=== PATIENT | female | born 1985 | race Caucasian/White ===

== ENCOUNTER 2019-05-12 22:22 | Emergency (ER) | payer OTHER ==
[~2019-05-12] VITALS: Ht 165.1 cm; Wt 61.2 kg
== END 2019-05-13 04:00 | disposition home or self-care (01) ==
LOC: ER 22:22
DX: O26.852 Spotting complicating pregnancy, second trimester (principal); Z34.02 Encounter for supervision of normal first pregnancy, second trimester

== ENCOUNTER 2019-06-16 11:50 | Outpatient (CLI) | payer OTHER | END 2019-06-16 12:55 | disposition home or self-care (01) | LOC: NST 11:50 | DX: O44.02 Complete placenta previa NOS or without hemorrhage, second trimester (principal) ==

== ENCOUNTER 2019-08-05 09:12 | Outpatient (CLI) | payer OTHER | END 2019-08-05 10:09 | disposition home or self-care (01) | LOC: NST 09:12 | DX: Z34.83 Encounter for supervision of other normal pregnancy, third trimester (principal) ==

== ENCOUNTER 2019-08-12 07:29 | Outpatient (CLI) | payer OTHER | END 2019-08-12 08:25 | disposition home or self-care (01) | LOC: NST 07:29 | DX: Z34.83 Encounter for supervision of other normal pregnancy, third trimester (principal) ==

== ENCOUNTER 2019-08-16 09:26 | Outpatient (CLI) | payer OTHER | END 2019-08-16 10:15 | disposition home or self-care (01) | LOC: NST 09:26 | DX: Z34.83 Encounter for supervision of other normal pregnancy, third trimester (principal) ==

== ENCOUNTER 2019-08-19 08:06 | Outpatient (CLI) | payer OTHER | END 2019-08-19 09:00 | disposition home or self-care (01) | LOC: NST 08:06 | DX: Z34.83 Encounter for supervision of other normal pregnancy, third trimester (principal) ==

== ENCOUNTER 2019-08-23 09:51 | Outpatient (CLI) | payer OTHER | END 2019-08-23 10:51 | disposition home or self-care (01) | LOC: NST 09:51 | DX: Z34.83 Encounter for supervision of other normal pregnancy, third trimester (principal) ==

== ENCOUNTER 2019-08-26 09:08 | Outpatient (CLI) | payer OTHER | END 2019-08-26 09:59 | disposition home or self-care (01) | LOC: NST 09:08 | DX: Z34.83 Encounter for supervision of other normal pregnancy, third trimester (principal) ==

== ENCOUNTER 2019-08-26 11:30 | Inpatient (IN) | payer OTHER ==
[~2019-08-26] VITALS: Ht 165.1 cm; Wt 1.8 kg
[2019-09-06] MEDS ORDERED: PRENATAL CAPLE1 EAC1 PO (11:07)
[2019-09-09] MEDS ORDERED: KETO10TA2 PO (07:36)
[2019-09-09] MEDS ORDERED: OXYC1TAB9 PO (07:36)
== END 2019-09-10 15:02 | DRG 786 ==
LOC: OB/GYN 09-06 08:00 → O/R 09-06 10:45 → OB/GYN 09-06 11:30 → SURG-SUITE 09-06 15:37 → OB/GYN 10-01 11:30
PROVIDERS: ADMIT Obstetrics & Gynecology Maternal & Fetal Medicine; ATTEND Obstetrics & Gynecology Maternal & Fetal Medicine
PROC: 4A1HXFZ Monitoring of Products of Conception, Cardiac Rhythm, External Approach (ICD-10-PCS; 2019-09-06)
PROC: 10D00Z1 Extraction of Products of Conception, Low, Open Approach (ICD-10-PCS; principal; 2019-09-06 08:00)
DX: O44.03 Complete placenta previa NOS or without hemorrhage, third trimester (principal); O60.14X0 Preterm labor third trimester with preterm delivery third trimester, not applicable or unspecified; O36.5930 Maternal care for other known or suspected poor fetal growth, third trimester, not applicable or unspecified; Z3A.36 36 weeks gestation of pregnancy; Z37.0 Single live birth

== ENCOUNTER 2019-08-28 08:47 | Outpatient (CLI) | payer OTHER | END 2019-08-28 10:20 | disposition home or self-care (01) | LOC: NST 08:47 | DX: Z34.83 Encounter for supervision of other normal pregnancy, third trimester (principal) ==

== ENCOUNTER 2019-08-31 07:21 | Outpatient (CLI) | payer OTHER | END 2019-08-31 08:23 | disposition home or self-care (01) | LOC: NST 07:21 | DX: Z34.83 Encounter for supervision of other normal pregnancy, third trimester (principal) ==

== ENCOUNTER 2019-09-03 14:20 | Outpatient (CLI) | payer OTHER | END 2019-09-03 15:53 | disposition home or self-care (01) | LOC: NST 14:20 | PROVIDERS: ATTEND Obstetrics & Gynecology Maternal & Fetal Medicine | DX: Z34.83 Encounter for supervision of other normal pregnancy, third trimester (principal) ==

== ENCOUNTER 2022-11-27 11:30 | Outpatient (CLI) | payer OTHER ==
[~2022-11-27 11:30] MED LIST: KETO10TA2 PO; OXYC1TAB9 PO; PRENATAL CAPLE1 EAC1 PO
== END 2022-11-27 12:32 | disposition home or self-care (01) ==
LOC: PRENATAL 11:30
PROVIDERS: ATTEND Obstetrics & Gynecology Maternal & Fetal Medicine
DX: Z76.1 Encounter for health supervision and care of foundling (principal)

== ENCOUNTER 2024-04-13 11:31 | Outpatient (CLI) | payer OTHER | END 2024-04-13 12:30 | disposition home or self-care (01) | LOC: NST 11:31 | PROVIDERS: ATTEND Obstetrics & Gynecology Maternal & Fetal Medicine | DX: Z34.83 Encounter for supervision of other normal pregnancy, third trimester (principal) ==

== ENCOUNTER 2024-04-20 06:15 | Inpatient (IN) | payer OTHER ==
[~2024-04-20] VITALS: Ht 165.1 cm; Wt 74.8 kg
[2024-04-20 06:32] VITALS: BP 107/68
[2024-04-20] MEDS ORDERED: RINGERS SOLUTION,LACTATED 10,000 ML IV SCH (07:00)
[2024-04-20] MEDS ORDERED: OXYTOCIN 500 ML IV SCH (07:00)
[2024-04-20] MEDS ORDERED: OXYTOCIN 20 UNITS/500ML RL PIGGYBAG IV ONE (07:12)
[2024-04-20 07:28] VITALS: BP 111/76
[2024-04-20 07:45] LABS: HEMATOCRIT 35.6 % (36.0-45.00); HEMOGLOBIN 12.7 g/dL (12.0-15.00); MEAN CELL VOLUME 84.2 fL (80.00-100.00); MEAN CORPUSCULAR HEMOGLOBIN 30.1 pg (27.00-32.0); MEAN CORPUSCULAR HGB CONC 35.8 g/dl (32.0-36.0); PLATELET COUNT 234 K/uL (150-450); RED BLOOD COUNT 4.22 M/uL (4.00-6.00); RED CELL DISTRIBUTION WIDTH 14.5 % (11.5-14.5)
[2024-04-20 08:05] LABS: INR < 0.93; PARTIAL THROMBOPLASTIN TIME 24.5 SECONDS (22.0-34.0); PROTHROMBIN TIME 9.8 SECONDS (9.0-11.5)
[2024-04-20 08:24] LABS: ALBUMIN 2.7 gm/dL (3.4-5.0); BILIRUBIN TOTAL 0.37 mg/dL (0.3-1.2); CREATININE SERUM 0.6 mg/dL (0.55-1.02); GFR 111.29; GLOBULINA 3.7 G/DL (2.4-3.5); POTASSIUM 3.59 mEq/L (3.5-5.1); TOTAL PROTEIN 6.4 gm/dL (6.4-8.2)
[2024-04-20 11:50] VITALS: BP 112/58
[2024-04-20] MEDS ORDERED: TERBUTALINE SULFATE 1 MG/ML AMPUL ONE (12:45)
[2024-04-20] MEDS ORDERED: CHLORHEXIDINE GLUCONATE 120 ML BOTTLE TOP ONE ×2 (12:53→13:15)
[2024-04-20] MEDS ORDERED: ERYTHROMYCIN BASE OPHT 1GM EACH TUBE OP ONE ×2 (12:53→14:00)
[2024-04-20] MEDS ORDERED: OXYTOCIN 20 UNITS/1000ML RL PIGGYBAG IV ONE (12:53)
[2024-04-20] MEDS ORDERED: LIDOCAINE HCL 1% 10ML VIAL ONE (12:53)
[2024-04-20] MEDS ORDERED: TERBUTALINE SULFATE 1 MG/ML AMPUL SUBCUTANEO ONE (13:00)
[2024-04-20] MEDS ORDERED: METHYLERGONOVINE MALEATE 0.2 MG/ML AMPUL ONE (13:06)
[2024-04-20] MEDS ORDERED: METHYLERGONOVINE MALEATE 0.2 MG/ML AMPUL IM ONE (13:10)
[2024-04-20] MEDS ORDERED: OxyCODONE HCL/APAP UD (PERCOCET) PO PRN (13:15)
[2024-04-20] MEDS ORDERED: OXYTOCIN 1,000 ML IV SCH (13:15)
[2024-04-20 16:46] VITALS: BP 119/74
[2024-04-20] MEDS ORDERED: KETOROLAC TROMETHAMINE 10 MG TABLET PO SCH (18:00)
[2024-04-21 00:37] VITALS: BP 116/65
[2024-04-21 07:51] VITALS: BP 100/55
[2024-04-22] VITALS: BP 113/62
[2024-04-22 09:04] VITALS: BP 124/77
== END 2024-04-22 11:29 | disposition home or self-care (01) | DRG 807 ==
LOC: LDR 06:15 → OB/GYN 14:01
PROVIDERS: ADMIT Obstetrics & Gynecology Maternal & Fetal Medicine; ATTEND Obstetrics & Gynecology Maternal & Fetal Medicine
PROC: 10E0XZZ Delivery of Products of Conception, External Approach (ICD-10-PCS; principal; 2024-04-20)
PROC: 3E033VJ Introduction of Other Hormone into Peripheral Vein, Percutaneous Approach (ICD-10-PCS; 2024-04-20)
PROC: 4A1HXCZ Monitoring of Products of Conception, Cardiac Rate, External Approach (ICD-10-PCS; 2024-04-20)
DX: O36.5930 Maternal care for other known or suspected poor fetal growth, third trimester, not applicable or unspecified (principal); Z37.0 Single live birth; Z3A.39 39 weeks gestation of pregnancy